=== PATIENT | female | born 1975 | race Two or more races ===

== ENCOUNTER → 2024-10-12 | Outpatient (CLI) | payer OTHER, SELFPAY ==
--- NOTE | 2024-10-12 09:45 | XR_ITS ---
Examination: Breast ultrasound, unilateral, right complete Date and time of exam: October 12, 2024 1036 hours INDICATIONS: Breast sonogram May 28, 2018 BI-RADS 4 suspicious nodule 9:00 position right breast Technique: Real-time hunter scale ultrasonographic imaging performed right breast including all 4 quadrants as well as nipple retroareolar and axillary region. Findings: Sonographic images right breast 9:00 irregular mass lobular margins 10 x 7 mm 11:00 nodule lobular margins 9 x 11 mm IMPRESSION: BI-RADS Category 3: Probably benign findings One additional 6 month right breast sonogram follow-up is needed
--- NOTE | 2024-10-12 10:45 | XR_ITS ---
Examination: Diagnostic digital mammography, bilateral Computer aided detection 3-D breast Tomosynthesis, bilateral Date and time of exam: October 12, 2024 10:51 AM Compared to mammograms dating to July 03, 2013 INDICATIONS: Strong family history breast cancer, sister, outside mammogram August 26, 2021 6 mm focal asymmetry on the MLO view right breast Technique: Nonmagnified MLO, CC views of the breasts to been obtained, reconstructed from 3-D Tomosynthesis images. R2 computer aided detection program utilized for evaluation of suspicious masses and/or abnormal calcifications. 3-D Tomosynthesis images obtained. Findings: The breasts are heterogeneously dense, which may obscure small masses 10 mm 8mm focal asymmetries upper right breast MLO view 14 mm 10 mm focal asymmetries upper left breast, the lower asymmetry associated with the breast biopsy marker Impression: BI-RADS Category 0: Incomplete: Need additional imaging evaluation Focal asymmetries upper right and left breast as above, recommend follow-up spot tomographic views upper outer quadrants right and left breast Please see the breast sonography report today indicating 6 month right breast follow-up is needed.
== END | disposition home or self-care (01) ==
LOC: CDIM 10:11
PROVIDERS: Referring Provider Physician Assistant; Visit Provider Physician Assistant
DX: R92.8 Other abnormal and inconclusive findings on diagnostic imaging of breast (principal); N64.89 Other specified disorders of breast
CPT/HCPCS: 76641; 77062; 77066; G0279

== ENCOUNTER → 2025-04-13 | Outpatient (CLI) | payer OTHER, SELFPAY ==
--- NOTE | 2025-04-13 09:00 | XR_ITS ---
Examination: Breast ultrasound, unilateral, left complete Date and time of exam: April 13, 2025, 0950 hours INDICATIONS: Mammogram October 12, 2024 focal asymmetries upper right and left breast Technique: Real-time hunter scale ultrasonographic imaging performed left breast including all 4 quadrants as well as nipple retroareolar and axillary region. Findings: 11:00 nodule with breast biopsy marker 14 x 8 mm Retroareolar nodule left breast biopsy marker 10 x 8 mm IMPRESSION: BI-RADS Category 3: Probably benign findings Recommend 1 additional 6-month left breast sonography follow-up to document stability of nodules described above
--- NOTE | 2025-04-13 09:30 | XR_ITS ---
Examination: Diagnostic digital mammography, bilateral Computer aided detection 3-D breast Tomosynthesis, bilateral Date and time of exam: 04/13/2025, 10:12 a.m. Comparisons: March 2019 through September 2024 Indications: Further evaluation of bilateral asymmetry seen on screening exam. Technique: Nonmagnified MLO, CC views of the breasts to been obtained, reconstructed from 3-D Tomosynthesis images. R2 computer aided detection program utilized for evaluation of suspicious masses and/or abnormal calcifications. 3-D Tomosynthesis images obtained. Findings: The breasts are heterogeneously dense, which may obscure small masses. No evidence of abnormal masses or suspicious calcifications. The previously described asymmetries do not persist on spot compression views and represents superposition of normal fibroglandular tissue. Impression: BI-RADS category 1: Negative findings (within normal) Recommend 1 year follow-up mammogram
== END | disposition home or self-care (01) ==
LOC: CDIM 09:39
PROVIDERS: PCP Physician Assistant; Referring Provider Physician Assistant; Visit Provider Physician Assistant
DX: R92.313 Mammographic fatty tissue density, bilateral breasts (principal); N63.42 Unspecified lump in left breast, subareolar; N63.22 Unspecified lump in the left breast, upper inner quadrant
CPT/HCPCS: 76641; 77062; 77066; G0279